=== PATIENT | female | born 1955 | race African-American/Black ===

== ENCOUNTER 2018-07-24 13:42 | Outpatient (CLI) | payer MEDICAID ==
[~2018-07-24] VITALS: Ht 160 cm; Wt 76.2 kg
[2018-07-24 14:16] VITALS: BP 144/71
[2018-07-24] MEDS ORDERED: AMLODIPINE BESYL5 MG ORAL (14:22)
--- NOTE | 2018-07-24 15:01 | GI Initial Consult Note ---
History of Present Illness General Date patient seen: Jul 24, 2018 Time patient seen: 14:57 Referring physician: O Reason for Consultation: SCREENING COLON Present Illness HPI 63 year old female patient presents today for routine colonoscopy. In addition , she has c/o of LLQ abdominal pain, dysphagia, GERD and constipation. Denies any unintentional weight loss or changes in dietary habits. No signs of abuse or neglect. Patient is not fall risk. Home Meds Reported Medications Amlodipine Besylate* (AMLODIPINE BESYLATE*) 5 Mg Tablet, 5 MG ORAL DAILY, TAB 07/24/18 Med list reviewed/reconciled: Yes Allergies: Coded Allergies: ACETAMINOPHEN (Verified Allergy, Intermediate, 07/24/18) palpitation Uncoded Allergies: inhaler for asthma (Adverse Reaction, Unknown, 07/24/18) convulsion Patient History History Provided By: Patient [facility] Narrative Asthma HTN GERD Past Surgical History: Right foot bunion Pertinent Family History: none Social History: Reports: alcohol use, other - caffeine Review of Systems All Other Systems: negative except mentioned in HPI Physical Exam Vital Signs Date Time Temp Pulse Resp B/P (MAP) Pulse Ox O2 Delivery O2 Flow Rate FiO2 07/24/18 14:16 97.5 52 16 144/71 98 97.5 Sp02 EP Interpretation: reviewed, normal General Appearance: well appearing, no apparent distress, alert Head: normocephalic EENT: PERRL/EOMI, normal ENT inspection Neck: supple Respiratory: normal breath sounds, no respiratory distress Cardiovascular: normal rate Gastrointestinal: normal inspection, non tender, soft, normal bowel sounds, non -distended Rectal: deferred Genitourinary: no CVA tenderness Musculoskeletal: normal inspection, back normal Neurologic: normal inspection, alert, oriented x3, responsive Psychiatric: normal inspection, judgement/insight normal, memory normal Skin: normal inspection, normal color, no rash, warm/dry, palpation normal, well hydrated Lymphatic: normal inspection, no adenopathy GI: Plan Problems: (1) Colonoscopy planned (2) GERD (gastroesophageal reflux disease) (3) Constipated (4) Dysphagia (5) Abdominal pain Plan EGD/colonoscopy to be scheduled prior authorization, will contact patient. - CLD & (Nulytely/Suprep/Movi-Prep) prep instructions given and acknowledged by patient. - NPO @ OR day prior procedure explained. Rx Linzess 145mcg Seen with Dr. Evans. The patient was seen and examined at bedside and all new and available data was reviewed in the patients chart. I agree with the above findings, impression and plan. (Patient seen earlier today. Signature stamp does not reflect patient encounter time.). - MD Leticia RoblesBanner Estrella Medical CenterRico MERARY Jul 24, 2018 15:01
== END 2018-07-24 14:12 | disposition home or self-care (01) ==
LOC: PAN 13:42
DX: K21.9 Gastro-esophageal reflux disease without esophagitis (principal); K59.00 Constipation, unspecified; Z88.6 Allergy status to analgesic agent; I10 Essential (primary) hypertension; R13.10 Dysphagia, unspecified; R10.9 Unspecified abdominal pain
CPT/HCPCS: 99201

== ENCOUNTER 2019-04-14 09:10 | Outpatient (CLI) | payer MEDICAID ==
[~2019-04-14 09:10] MED LIST: AMLODIPINE BESYL5 MG ORAL
[2019-04-14 09:35] VITALS: BP 121/71
--- NOTE | 2019-04-14 09:52 | General Progress Note ---
Assessment/Plan Problem List: (1) Constipated ICD Codes: K59.00 - Constipation, unspecified SNOMED: 92248936 (2) Abdominal pain ICD Codes: R10.9 - Unspecified abdominal pain SNOMED: 14937554 (3) GERD (gastroesophageal reflux disease) ICD Codes: K21.9 - Gastro-esophageal reflux disease without esophagitis SNOMED: 073344987 (4) Colonoscopy planned SNOMED: 252534725 Assessment/Plan: linzess omeprazole plan colonoscopy Subjective ROS Limited/Unobtainable: Yes Allergies: Coded Allergies: ACETAMINOPHEN (Verified Allergy, Intermediate, 07/24/18) palpitation Uncoded Allergies: inhaler for asthma (Adverse Reaction, Unknown, 07/24/18) convulsion Objective General Appearance: alert EENT: normal ENT inspection Neck: supple Cardiovascular: normal rate Respiratory/Chest: lungs clear Abdomen: normal bowel sounds, non tender, soft Extremities: non-tender Sunil Evans MD April 14, 2019 09:52
[2019-04-15] MEDS ORDERED: FAMOTIDINE20 MG ORAL (07:20)
== END 2019-04-14 13:49 | disposition home or self-care (01) ==
LOC: PAN 09:10
DX: K59.00 Constipation, unspecified (principal); R10.9 Unspecified abdominal pain; K21.9 Gastro-esophageal reflux disease without esophagitis; Z88.6 Allergy status to analgesic agent

== ENCOUNTER 2019-06-29 13:54 | Outpatient (CLI) | payer MEDICAID ==
[~2019-06-29 13:54] MED LIST changes: +FAMOTIDINE20 MG ORAL
--- NOTE | 2019-06-29 15:50 | General Progress Note ---
Assessment/Plan Problem List: (1) Gastritis ICD Codes: K29.70 - Gastritis, unspecified, without bleeding SNOMED: 1196281 (2) Hemorrhoids ICD Codes: K64.9 - Unspecified hemorrhoids SNOMED: 76056720 (3) Abdominal pain ICD Codes: R10.9 - Unspecified abdominal pain SNOMED: 78545142 (4) GERD (gastroesophageal reflux disease) ICD Codes: K21.9 - Gastro-esophageal reflux disease without esophagitis SNOMED: 245394029 Assessment/Plan: PPI AMITIiza repeat colon in 5 years Subjective ROS Limited/Unobtainable: Yes Allergies: Coded Allergies: ACETAMINOPHEN (Verified Allergy, Intermediate, 07/24/18) palpitation Uncoded Allergies: inhaler for asthma (Adverse Reaction, Unknown, 07/24/18) convulsion Objective General Appearance: alert EENT: normal ENT inspection Neck: supple Cardiovascular: normal rate Respiratory/Chest: lungs clear Abdomen: normal bowel sounds, non tender, soft Extremities: non-tender Sunil Evans MD Jun 29, 2019 15:50
[2019-06-30 07:57] VITALS: BP 121/72
== END 2019-06-29 15:54 | disposition home or self-care (01) ==
LOC: PAN 13:54
DX: K29.70 Gastritis, unspecified, without bleeding (principal); K64.9 Unspecified hemorrhoids; R10.9 Unspecified abdominal pain; K21.9 Gastro-esophageal reflux disease without esophagitis; Z88.6 Allergy status to analgesic agent
CPT/HCPCS: 99212